=== PATIENT | female | born 1980 | race Caucasian/White ===

== ENCOUNTER → 2021-05-02 | Outpatient (CLI) | payer BC ==
[~2021-05-02] MED LIST: ASPIRIN E.C. 8181 MG PO; LEVEMIR100 U/ML SC; MIRALAX17 GM/DOSE PO; NEXIUM20 MG PO; NOVOLOG FLEX100 U/ML SC; PRENATAL1 TA1 PO; PRILOSEC 20MG20 MG PO
== END ==
LOC: MC.RAD 13:09
DX: Z12.31 Encounter for screening mammogram for malignant neoplasm of breast (principal); N63.11 Unspecified lump in the right breast, upper outer quadrant

== ENCOUNTER → 2021-05-10 | Outpatient (CLI) | payer BC | LOC: MC.RAD 07:00 | DX: N60.01 Solitary cyst of right breast (principal) ==

== ENCOUNTER → 2023-08-25 | Outpatient (CLI) | payer BC | LOC: MC.RAD 07:22 | DX: Z12.31 Encounter for screening mammogram for malignant neoplasm of breast (principal) ==